=== PATIENT | female | born 1985 | race Caucasian/White ===

== ENCOUNTER → 2017-03-08 | Outpatient (CLI) | payer BC ==
[~2017-03-08] MED LIST: IBUP600T44 PO; PRENTAB26 PO
[2017-03-08 11:24] LABS: URINE APPEARANCE CLOUDY (CLEAR); URINE BILIRUBIN NEG (NEG); URINE COLOR DK YELLOW; URINE EPITHELIAL CELL AUTO >30 /lpf (0-5); URINE NITRITE NEG (NEG); URINE SPECIFIC GRAVITY 1.033 (1.000-1.030); UROBILINOGEN NEG (NEG)
[2017-03-08 11:25] LABS: MANUAL MICROSCOPIC REQUIRED? NO; REVIEW REQ? NO
== END | disposition home or self-care (01) ==
LOC: C.LABSPEC 11:00
PROVIDERS: ATTEND Obstetrics & Gynecology
DX: O34.219 Maternal care for unspecified type scar from previous cesarean delivery (principal)

== ENCOUNTER → 2017-03-15 | Outpatient (CLI) | payer BC | END | disposition home or self-care (01) | LOC: C.PAPS 08:42 | PROVIDERS: ATTEND Obstetrics & Gynecology | DX: Z34.81 Encounter for supervision of other normal pregnancy, first trimester (principal) ==

== ENCOUNTER → 2017-03-15 | Outpatient (CLI) | payer BC ==
[2017-03-15 17:37] LABS: BASO % 0.2 %; BASO ABS # 0.02 K/uL (0-0.2); COMPLETE YES; EOS % 0.6 %; HEMATOCRIT 38.2 % (37-47); IG% 0.3 %; LYMPH % 22.5 %; LYMPH ABS # 2.32 K/uL (1.2-3.4); MEAN CELL VOLUME 87.2 fL (80-100); MEAN CORPUSCULAR HEMOGLOBIN 29.9 pg (25-34); MEAN CORPUSCULAR HGB CONC 34.3 g/dl (32-36); MONO % 9.6 %; NEUT % 66.8 %; PLATELET COUNT 250 K/uL (130-400); RED BLOOD COUNT 4.38 M/uL (4.2-5.4); WHITE BLOOD COUNT 10.31 K/uL (4.8-10.8)
[2017-03-18 01:57] LABS: CHLAMYDIA TRACH RNA*** NOT DETECTED (NOT DETECTED); GC (NEIS GONORRHOEAE)RNA** NOT DETECTED (NOT DETECTED)
== END | disposition home or self-care (01) ==
LOC: C.LAB1850 16:14
PROVIDERS: ATTEND Obstetrics & Gynecology
DX: Z34.82 Encounter for supervision of other normal pregnancy, second trimester (principal)

== ENCOUNTER → 2017-05-10 | Outpatient (CLI) | payer BC ==
[2017-05-10 16:58] LABS: GTGD 50 Grams
[2017-05-12 14:48] LABS: AFP CONCENTRATION 35.5 NG/ML; AFP MULTIPLE OF MEDIAN 1.29; AFPTS INSULIN DEP DIABETIC? NO; AFPTS MATERNAL WT 193 LBS; ALPHA-FETOPROTEIN RACE CAUCASIAN=W; ESTRIOL MULTIPLE OF MEDIAN 0.99; HISTORY OF NTD NO; INHIBIN A 151 PG/ML; INHIBIN A MOM 0.99; REPEAT SAMPLE? NO; hCG MULTIPLE OF MEDIAN 2.17
== END | disposition home or self-care (01) ==
LOC: C.LAB1850 15:11
PROVIDERS: ATTEND Obstetrics & Gynecology
DX: Z34.82 Encounter for supervision of other normal pregnancy, second trimester (principal)

== ENCOUNTER → 2017-08-02 | Outpatient (CLI) | payer SELFPAY ==
[~2017-08-02] MED LIST changes: +OXYC-57 PO
== END | disposition home or self-care (01) ==
LOC: C.LABSPEC 13:12
PROVIDERS: ATTEND Obstetrics & Gynecology
DX: Z34.83 Encounter for supervision of other normal pregnancy, third trimester (principal)

== ENCOUNTER → 2017-08-02 | Outpatient (CLI) | payer OTHER ==
[2017-08-02 10:46] LABS: HEMATOCRIT 33.8 % (37-47); HEMOGLOBIN 11.4 g/dL (12.0-16.0)
== END | disposition home or self-care (01) ==
LOC: C.LAB1850 09:30
PROVIDERS: ATTEND Obstetrics & Gynecology
DX: Z34.83 Encounter for supervision of other normal pregnancy, third trimester (principal)

== ENCOUNTER 2017-09-30 12:03 | Inpatient (IN) | payer OTHER ==
[~2017-09-30] VITALS: Ht 160 cm; Wt 94.1 kg
[~2017-09-30 12:03] MED LIST changes: -OXYC-57 PO
[2017-09-30 12:30] VITALS: Ht 160 cm; Wt 94.1 kg
[2017-09-30] MEDS ORDERED: CITRIC ACID/SODIUM CITRATE 15 ML UDC PO ONE (12:30)
--- NOTE | 2017-09-30 12:39 | HISTORY & PHYSICAL EXAMINATION ---
DATE OF ADMISSION: 09/30/2017 PREOPERATIVE HISTORY AND PHYSICAL HISTORY OF PRESENT ILLNESS: Deidre presented on 09/30/2017 to labor and delivery with premature rupture of membranes. She said her membranes ruptured approximately 8:30 in the morning and then contractions started to increase. Her is noted that this is her fourth baby and this will be her fourth . She also wishes a tubal ligation. Says her was uncomplicated and the only real issue was that the 3 prior sections. The patient is due on 10/25/2017 making her 36 weeks and 3 days today. I do not have a group B strep status as this would likely to be done this week in the office. Her prior sections ____ 2 of them were done in [place] and then the last one was done at 39 weeks at [facility]. PAST MEDICAL HISTORY: Healthy. PAST SURGICAL HISTORY: As mentioned, three prior sections. SOCIAL HISTORY: She is , nonsmoker, nondrinker. FAMILY HISTORY: Noncontributory. REVIEW OF SYSTEMS: Negative. PHYSICAL EXAMINATION: VITAL SIGNS: Stable. She is afebrile. Weight is 210 pounds. CHEST: Clear. CARDIOVASCULAR: Normal rate and rhythm. No audible murmur. ABDOMEN: Gravid. heart rate tones reactive. Abdomen gravid. PELVIS: A sterile spec exam done. There is pooling of fluid which is in the vagina, cervix appears closed. Ferning is positive. IMPRESSION AND PLAN: Clear picture premature rupture of membranes. Discussed need for section today. The patient also wishes a tubal. Discussed risks including bleeding, infection, injury to bowel, bladder, ureter, vessels, deep vein thrombosis and pulmonary embolus. We discussed increased risks of internal organ injury with prior sections x4. We also discussed tubal failure rates and risks.
[2017-09-30] MEDS ORDERED: LACTATED RINGER'S 1000ML 1,000 ML IV SCH ×2 (12:40→15:15)
[2017-09-30] MEDS ORDERED: CEFAZOLIN 2000MG IV PUSH 15 ML IV SCH (12:45)
[2017-09-30 12:48] LABS: BASO % 0.1 %; BASO ABS # 0.01 K/uL (0-0.2); EOS % 0.2 %; EOS ABS # 0.02 K/uL (0-0.5); HEMATOCRIT 35.1 % (37-47); HEMOGLOBIN 12.1 g/dL (12.0-16.0); IG# 0.06 K/uL (0.00-0.02); LYMPH % 16.8 %; LYMPH ABS # 1.56 K/uL (1.2-3.4); MEAN CELL VOLUME 91.6 fL (80-100); MEAN CORPUSCULAR HEMOGLOBIN 31.6 pg (25-34); MEAN CORPUSCULAR HGB CONC 34.5 g/dl (32-36); MEAN PLATELET VOLUME 9.9 fL (7.4-10.4); MONO % 6.8 %; MONO ABS # 0.63 K/uL (0.11-0.59); NEUT % 75.5 %; NEUT ABS # 6.98 K/uL (1.4-6.5); PLATELET COUNT 202 K/uL (130-400); RED CELL DISTRIBUTION WIDTH CV 13.6 % (11.5-14.5); RED CELL DISTRIBUTION WIDTH SD 44.9 fL (36.4-46.3); WHITE BLOOD COUNT 9.26 K/uL (4.8-10.8)
[2017-09-30] MEDS ORDERED: MoRPHine SULFATE PF 1 MG/ML 10 ML AMP/VIAL ONE (13:29)
[2017-09-30] MEDS ORDERED: OXYTOCIN INJ 10 UNITS/ML VIAL ONE (14:10)
[2017-09-30] MEDS ORDERED: NALOXONE HCL INJ 1 MG in SODIUM CHLORIDE 0.9% 1000ML 1,000 ML IV PRN (14:16)
[2017-09-30] MEDS ORDERED: LACTATED RINGER'S 1000ML 500 ML IV PRN (14:16)
[2017-09-30] MEDS ORDERED: NALOXONE HCL INJ 0.08 MG in SYRINGE 1.8 ML IV PRN (14:16)
[2017-09-30] MEDS ORDERED: SODIUM CHLORIDE 0.9% 1000ML 1,000 ML IV PRN (14:16)
[2017-09-30] MEDS ORDERED: METOCLOPRAMIDE HCL INJ 20 MG in SODIUM CHLORIDE 0.9% 50ML 50 ML IV PRN (14:30)
[2017-09-30] MEDS ORDERED: NALBUPHINE HCL INJ 10 MG/ML AMP IV PRN (14:30)
[2017-09-30] MEDS ORDERED: ATROPINE SULFATE 0.1 MG/ML 5ML SYR IV PRN (14:30)
[2017-09-30] MEDS ORDERED: NO NARCOTICS OR SEDATIVES SCH (14:30)
[2017-09-30] MEDS ORDERED: KETOROLAC TROMETHAMINE 30 MG/ML VIAL IV. PRN (14:30)
[2017-09-30] MEDS ORDERED: LABETALOL HCL IV 5 MG/ML 20ML IV PRN (14:30)
[2017-09-30] MEDS ORDERED: NALOXONE HCL 0.4 MG/1 ML VIAL/CARP IV PRN (14:30)
[2017-09-30] MEDS ORDERED: MEPERIDINE HCL 25 MG/ML CARP IV PRN ×2 (14:30)
[2017-09-30] MEDS ORDERED: ONDANSETRON INJ 2 MG/ML 2 ML VIAL IV PRN ×2 (14:30)
[2017-09-30] MEDS ORDERED: DiphenhydrAMINE HCL 50 MG/ML VIAL IV PRN ×2 (14:30)
[2017-09-30] MEDS ORDERED: MoRPHine SULFATE PF 1 MG/ML 10 ML AMP/VIAL EPI PRN (14:30)
[2017-09-30] MEDS ORDERED: HYDROmorphone INJ 1 MG/ML SYR IV PRN (14:30)
[2017-09-30] MEDS ORDERED: FENTANYL CITRATE INJ 50 MCG/1 ML 2 ML VIAL IV PRN (14:30)
[2017-09-30] MEDS ORDERED: MoRPHine SULFATE 2 MG/ML CARP IV PRN (14:30)
[2017-09-30] MEDS ORDERED: EpHEDrine SULFATE INJ 50 MG/ML AMP IV PRN ×2 (14:30)
--- NOTE | 2017-09-30 14:39 | [facility] Post Operative Brief Note ---
Immediate Operative Summary Operative Date Sep 30, 2017. Pre-Operative Diagnosis Repeat Caesarean; Requests Permanent Sterlization Post-Operative Diagnosis Same Procedure(s) Performed Repeat Caesarean Section; Delivery of a live male child at 1405; Bilateral Tubal Ligation. Low transverse Surgeon Dr Arnold [employer] Teller Surgeon(s) Dr Mathews Estimated Blood Loss 600 cc Findings Consistent with Post-Op Diagnosis Specimens cord blood arterial and venous gases placenta-hold Drains Lilly Anesthesia Type L&D Only EPID Exist Complication(s) none Disposition Accompanied Pt To Recover: no Disposition: L&D
[2017-09-30] MEDS ORDERED: BENZOCAINE 20% AER SPR 82.5 GM CAN EXT PRN (14:45)
[2017-09-30] MEDS ORDERED: MAGNESIUM HYDROXIDE SUSP 30 ML UDC PO PRN (14:45)
[2017-09-30] MEDS ORDERED: LANOLIN OINT EXT PRN (14:45)
[2017-09-30] MEDS ORDERED: SUPERCREAM 0.870 % 15GM JAR EXT PRN (14:45)
[2017-09-30] MEDS ORDERED: SENNA 8.6 MG TAB PO PRN (14:45)
[2017-09-30] MEDS ORDERED: HYDROCORTISONE ACETATE 25 MG SUPP PR PRN (14:45)
[2017-09-30] MEDS ORDERED: OXYTOCIN INJ 20 UNITS in LACTATED RINGER'S 1000ML 1,000 ML IV SCH (15:15)
--- NOTE | 2017-09-30 15:31 | Anesthesiology Progress Note ---
Anesthesia Post Op Note Date & Time Sep 30, 2017 at 15:30 Notes Mental Status: alert / awake / arousable, participated in evaluation Pt Amnestic to Procedure: Yes Nausea / Vomiting: adequately controlled Pain: adequately controlled Airway Patency, RR, SpO2: stable & adequate BP & HR: stable & adequate Hydration State: stable & adequate Neuraxial Anesthesia: was administered, sensory block is resolving Anesthetic Complications: no major complications apparent
--- NOTE | 2017-09-30 16:33 | OPERATIVE REPORT ---
DATE OF OPERATION: 09/30/2017 PREOPERATIVE DIAGNOSES: premature rupture of membranes, repeat section. The patient requests permanent sterilization, 36 weeks 3 days. POSTOPERATIVE DIAGNOSES: Same. PROCEDURE: Low transverse section, bilateral tubal ligation. SURGEON: Dr. Arnold. SIGNALS INTELLIGENCE SUPERINTENDENT: Dr. Mathews. ESTIMATED BLOOD LOSS: 600 mL. FINDINGS: Consistent with postoperative diagnosis. SPECIMENS: Cord blood, placenta hold and bilateral pieces of fallopian tube. DRAINS: Lilly. ANESTHETIC: Spinal. COMPLICATIONS: None. DISPOSITION: L&D. DESCRIPTION OF PROCEDURE: Deidre was given a spinal anesthetic, prepped and draped in dorsal lithotomy position. Lilly catheter placed by Dr. Arnold. Skin area tested with pickups with teeth and found to be adequate. IV Ancef given preoperatively. Using the previous Pfannenstiel incision, we made a scalpel incision dissecting down through subcutaneous to the fascia in the midline. Fascia was dissected laterally with the curved Randolph scissors. There were dense adhesions at this stage. I was able to resect the fascia superiorly away from the rectus muscles and entered the peritoneal cavity in a superior location. There were significant adhesions of the anterior abdominal wall to the anterior part of the uterus. These were dissected away sharply until we could expose the low segment of the uterus. At this stage, we felt we were well away from the bladder and we made a scalpel incision over this and entered the uterine cavity with a hemostat, opening expanded by the terminal press operator's fingers to allow delivery of the baby's head and the baby was in vertex position, clear fluid. Baby's head flexed and the baby was delivered by flexion of the head and pressure on the abdomen. Live vigorous infant. No excessive force used. Cord clamped and cut. Cord gases obtained. Cord blood obtained. IV Pitocin started. Placenta removed. Uterus exteriorized. We ensured all placenta removed with a moist lap. Uterus was closed in 2 layer running locked 0 Monocryl and a second reinforcing nonlocked 0 Monocryl. At this stage, hemostasis was excellent. I did confirm with the patient and she still wished her tubes tied. This was done by first on the right tube, grabbing in the isthmic portion with the [place] ligating this with a 0 chromic and then a second 0 chromic tie and then a small portion of right fallopian tube was cut out and sent to pathology, same exact process repeated on the right. Once this was done after generous irrigation and suction of the cul-de-sac and bladder flap regions, uterus was placed back in the peritoneal cavity. On visualization, hemostasis was excellent including the tubal ligation site. Fascia closed with #1 PDS, 2 stitches starting laterally meeting in the midline. Each stitch tied 8 times. Subcutaneous fat irrigated and closed with 3-0 Vicryl, 4-0 subcuticular Monocryl closure. Urine was clear at the end of the procedure. Sponge and instrument counts correct. I attest to the content of the Intraoperative Record and any orders documented therein. Any exception s are noted below.
[2017-09-30] MEDS: SIMETHICONE 80 MG CHEW PO SCH ×2 (17:00→20:03)
[2017-09-30 17:30] VITALS: BP 106/68; PULSE 71; TEMP 36.5; O2SAT 100
[2017-09-30 18:30] VITALS: O2SAT 100
[2017-09-30 19:30] VITALS: O2SAT 98
[2017-09-30] MEDS: DOCUSATE SODIUM 100 MG CAP PO SCH (20:03)
[2017-09-30 20:30] VITALS: BP 94/60; PULSE 74; TEMP 36.7; O2SAT 97; O2SAT 99
[2017-09-30 22:30] VITALS: O2SAT 98
[2017-09-30 23:30] VITALS: O2SAT 97
[2017-10-01] VITALS (11 sets, daily range): BP systolic 94–118; BP diastolic 59–77; PULSE 72–78; TEMP 36.4–36.7; O2SAT 96–100
[2017-10-01] MEDS: IBUPROFEN 600 MG TAB PO PRN ×5 (02:36→20:39)
[2017-10-01] MEDS ORDERED: CEFAZOLIN IV 2,000 MG in DEXTROSE 5% 50ML 50 ML IV SCH (06:00)
[2017-10-01 07:01] LABS: BASO % 0.1 %; BASO ABS # 0.01 K/uL (0-0.2); EOS % 0.5 %; EOS ABS # 0.05 K/uL (0-0.5); HEMATOCRIT 31.3 % (37-47); HEMOGLOBIN 10.8 g/dL (12.0-16.0); IG# 0.04 K/uL (0.00-0.02); LYMPH % 13.7 %; LYMPH ABS # 1.27 K/uL (1.2-3.4); MEAN CORPUSCULAR HEMOGLOBIN 31.4 pg (25-34); MEAN CORPUSCULAR HGB CONC 34.5 g/dl (32-36); MEAN PLATELET VOLUME 9.7 fL (7.4-10.4); MONO % 10.6 %; MONO ABS # 0.98 K/uL (0.11-0.59); NEUT % 74.7 %; NEUT ABS # 6.93 K/uL (1.4-6.5); PLATELET COUNT 177 K/uL (130-400); RED CELL DISTRIBUTION WIDTH CV 13.6 % (11.5-14.5); RED CELL DISTRIBUTION WIDTH SD 45.2 fL (36.4-46.3); WHITE BLOOD COUNT 9.28 K/uL (4.8-10.8)
[2017-10-01] MEDS ORDERED: KETOROLAC TROMETHAMINE 30 MG/ML VIAL IV. PRN (07:45)
[2017-10-01] MEDS ORDERED: ONDANSETRON INJ 2 MG/ML 2 ML VIAL IV PRN (07:45)
[2017-10-01] MEDS ORDERED: PROMETHAZINE HCL INJ 25 MG in SODIUM CHLORIDE 0.9% 50ML 50 ML IV PRN (07:45)
[2017-10-01] MEDS ORDERED: DiphenhydrAMINE HCL 50 MG/ML VIAL IV PRN (07:45)
[2017-10-01] MEDS ORDERED: ZOLPIDEM TARTRATE 5 MG TAB PO PRN (07:45)
[2017-10-01] MEDS ORDERED: DC INTRASPINAL MORPHINE ONE (07:45)
[2017-10-01] MEDS ORDERED: OXYCODONE/ACETAMINOPHEN 5-325 TAB PO PRN ×2 (07:45)
[2017-10-01] MEDS ORDERED: MEPERIDINE HCL 50 MG/ML CARP IV PRN ×2 (07:45)
--- NOTE | 2017-10-01 08:07 | Progress Note ---
Subjective Oct 01, 2017. Subjective conversation w/ patient, physical exam, chart review Ambulation: ambulating normally Voiding: no voiding problems Passing Gas: No Diet Tolerance: Regular Diet Lochia: Small Objective Vital Signs Date Time Temp Pulse Resp B/P (MAP) Pulse Ox O2 Delivery O2 Flow Rate FiO2 10/01/17 06:30 18 97 10/01/17 05:30 18 100 10/01/17 04:30 18 100 10/01/17 03:45 36.7 74 18 94/60 (71) 97 Room Air 10/01/17 03:30 18 97 10/01/17 02:30 18 100 10/01/17 01:30 18 100 10/01/17 00:30 36.5 73 18 95/59 (71) 97 Room Air 10/01/17 00:30 18 97 10/01/17 00:30 97 Room Air 09/30/17 23:30 18 97 09/30/17 22:30 18 98 09/30/17 20:30 36.7 74 20 94/60 (71) 97 Room Air 09/30/17 20:30 20 97 09/30/17 20:30 18 99 09/30/17 19:30 18 98 09/30/17 18:30 18 100 09/30/17 17:30 18 100 09/30/17 17:30 100 Room Air 09/30/17 17:30 100 Room Air 09/30/17 17:30 36.5 71 18 106/68 (81) 100 Room Air Physical Exam General Appearance: WELL-APPEARING Respiratory/Chest: lungs clear Cardiovascular: regular rate, rhythm Abdomen: non tender Fundus: Firm Incision Description: Clean, Dry & Intact Extremities: no calf tenderness Laboratory Results Last 24 Hours Test 09/30/17 12:37 10/01/17 06:15 White Blood Count 9.26 K/uL 9.28 K/uL Red Blood Count 3.83 M/uL 3.44 M/uL Hemoglobin 12.1 g/dL 10.8 g/dL Hematocrit 35.1 % 31.3 % Mean Corpuscular Volume 91.6 fL 91.0 fL Mean Corpuscular Hemoglobin 31.6 pg 31.4 pg Mean Corpuscular Hemoglobin Concent 34.5 g/dl 34.5 g/dl Platelet Count 202 K/uL 177 K/uL Mean Platelet Volume 9.9 fL 9.7 fL Neutrophils (%) (Auto) 75.5 % 74.7 % Lymphocytes (%) (Auto) 16.8 % 13.7 % Monocytes (%) (Auto) 6.8 % 10.6 % Eosinophils (%) (Auto) 0.2 % 0.5 % Basophils (%) (Auto) 0.1 % 0.1 % Neutrophils # (Auto) 6.98 K/uL 6.93 K/uL Lymphocytes # (Auto) 1.56 K/uL 1.27 K/uL Monocytes # (Auto) 0.63 K/uL 0.98 K/uL Eosinophils # (Auto) 0.02 K/uL 0.05 K/uL Basophils # (Auto) 0.01 K/uL 0.01 K/uL RDW Standard Deviation 44.9 fL 45.2 fL RDW Coefficient of Variation 13.6 % 13.6 % Immature Granulocyte % (Auto) 0.6 % 0.4 % Immature Granulocyte # (Auto) 0.06 K/uL 0.04 K/uL Assessment and Plan Post-Op Day#: 1 Continue Routine Care: Postoperative day #1 from section continue ambulation
[2017-10-01] MEDS: SIMETHICONE 80 MG CHEW PO SCH ×4 (08:19→20:38)
[2017-10-01] MEDS: PRENATAL VITAMIN TAB PO SCH (08:19)
[2017-10-01] MEDS: DOCUSATE SODIUM 100 MG CAP PO SCH ×2 (08:20→20:38)
[2017-10-01] MEDS ORDERED: BISACODYL 5 MG TABEC PO ONE (22:00)
[2017-10-02] MEDS: IBUPROFEN 600 MG TAB PO PRN ×4 (00:03→16:07)
--- NOTE | 2017-10-02 06:34 | Progress Note ---
Subjective Oct 02, 2017. Subjective conversation w/ patient, physical exam, chart review Ambulation: ambulating normally Voiding: no voiding problems Passing Gas: Yes Diet Tolerance: Regular Diet Lochia: Small Objective Vital Signs Date Time Temp Pulse Resp B/P (MAP) Pulse Ox O2 Delivery O2 Flow Rate FiO2 10/01/17 23:50 96 Room Air 10/01/17 23:50 36.6 73 16 118/77 (91) 96 Room Air 10/01/17 15:30 36.4 78 20 112/68 (83) Room Air 10/01/17 15:30 Room Air 10/01/17 08:25 36.6 72 20 103/68 (80) Physical Exam General Appearance: WELL-APPEARING Respiratory/Chest: lungs clear Abdomen: non tender Fundus: Firm Incision Description: Clean, Dry & Intact Extremities: no calf tenderness Laboratory Results Last 24 Hours Test 10/02/17 06:01 Assessment and Plan Post-Op Day#: 2 Continue Routine Care: Postop day #2 from section and bilateral tubal ligation at this stage she meets discharge criteria and wishes to go home
[2017-10-02] MEDS ORDERED: OXYC-57 PO (06:35)
--- NOTE | 2017-10-02 06:35 | Discharge Instructions ---
Discharge Instructions Date of Service Oct 02, 2017. Admission Reason for Admission: Check Rupture Discharge Discharge Diagnosis / Problem: CS Discharge Goals Goal(s): Routine recovery after Activity Recommendations Activity Limitations: per Instructions/Follow-up section . Instructions / Follow-Up Instructions / Follow-Up ACTIVITY RECOMMENDATIONS: * Gradual return to full activity over the next 2-3 weeks. * No lifting - nothing heavier than baby over the next 2-3 weeks. * Do not engage in vigorous exercise, sexual activity or sports until cleared by your physician. * Do not drive or operate any motorized equipment until cleared by your physician. * You may shower/bathe daily. MEDICATIONS: For discomfort or pain, you may use Acetaminophen (Tylenol), Ibuprofen (Advil), or Naproxen (Aleve) following the package directions. For constipation you may use Colace following the package directions. BREAST CARE: If you are not breast feeding: * Wear a supportive bra 24 hours a day for one to two weeks. * Avoid stimulating your breasts and nipples as much as possible during the first few weeks after delivery. * When taking a shower, have the warm water hit your back, not breasts. * When your breasts feel full, apply ice packs. Usually three to four times a day helps ease the discomfort. * Take a mild pain medication (Tylenol / Motrin) when you are uncomfortable. If breast feeding: * Use breast milk to lubricate nipples. Lansinoh cream may be used for sore nipples. You do not need to remove cream prior to breast feeding. If using a different brand of cream, check the label for directions regarding removal of cream prior to nursing. * Wear a supportive bra. * If having problems with breasts or breast feeding, call a forestry consultant or your health care provider. SPECIAL CARE INSTRUCTIONS: When you are discharged from the hospital, it is important for you to follow the instructions listed below: * During the first week at home, you should be able to care for yourself and your baby. In addition, the usual light household activities are encouraged. * Limit your activities to the way you feel. Do not try to clean the house or move furniture. Be sensible. * If you actively engage in sports and have done so up until the time of your delivery, you may resume these activities as soon as you feel able. This may take up to one month or even longer. Use good judgment. * Continue to take your vitamins for at least six weeks after the of your baby. * Your diet need not be limited unless you were on a special diet before your delivery. Breast-feeding mothers need around 2500 calories per day and at least 64-80 ounces of fluid per day (8 to 10 glasses). * You should eat foods from the four major food groups. Crash diets or fad diets are to be avoided. Eating lean meats, fresh fruits and vegetables, low-fat dairy products, high fiber foods and a regular exercise program, will help you get back to your pre- weight without putting your health at risk. * Constipation is sometimes a problem after delivery. Take a mild laxative as needed. If breast feeding, Milk of Magnesia is acceptable to use. You may use a suppository or Fleets enema. * A daily shower or tub bath is suggested. Wash incision daily with warm soapy water and pat dry. It doesn't need to be covered unless drainage is present. * A bloody vaginal discharge will usually continue until around four weeks . A small amount of bleeding may continue for as long as six weeks. Vaginal discharge changes from the bright red bleeding after delivery to pink then brownish and finally yellowish-pink before becoming white and disappearing. * Bleeding may increase with activity. Your first period may come in 4-8 weeks. If you are breast feeding, your period may be delayed even longer. * [place] (sex) can begin whenever both you and your partner feel comfortable and do not have any form of genital infection. It is recommended that you wait at least six weeks for internal and external healing to occur. If you have questions, please talk to your health care practitioner. A condom should be used to prevent infection and . * Foreplay, gentle intercourse and lubrication is very important the first several times to prevent pain. A water-based lubricant such as K-Y jelly or Astroglide may be used. * If you have RH negative blood and your baby is RH positive, you will receive RHOGAM by injection prior to discharge. The nurse will give you a card to keep with you that has the date and place that you received RHOGAM after delivery. * During your care, you had a Rubella screen done to check for the presence of rubella antibodies in your blood. If your test was negative, you will receive a Rubella vaccine prior to discharge. This vaccine may cause a fever, soreness at the injection site and flu-like symptoms. If these symptoms persist, notify your health care practitioner. is not advised for one month after a Rubella vaccine. * Verbalizes understanding of car seat law as reviewed with patient nursing. * Car Seat hand-out given and reviewed with patient by nursing. * Shaken baby information reviewed with patient by nursing. Call you doctor if: * Heavy bleeding (saturating several pads an hour) or passing clots the size of your fist. * A fever >101 degrees F (38.3 degrees C) on two occasions four hours apart and /or chills. * Unusual pain in the pelvic or vaginal areas. * Call the doctor for any increased redness, drainage or swelling around the incision and any pain unrelieved by prescribed pain medication. * "Baby Blues" lasting longer than two weeks. If you have any questions or concerns, call your health care practitioner at . FOLLOW UP VISIT: * Please call the office at to schedule a 6 week examination. It is important you keep this appointment. It is important for you to make arrangements for either yearly or twice yearly check-ups thereafter. Current Hospital Diet Patient's current hospital diet: Regular OB Diet Discharge Diet Recommended Diet: Regular OB Diet Procedures Procedures Performed: Repeat Caesarean Section; Delivery of a live male child at 1405; Bilateral Tubal Ligation. Low transverse Pending Studies Studies pending at discharge: no Medical Emergencies . Who to Call and When: Medical Emergencies: If at any time you feel your situation is an emergency, please call [phone] immediately. . Non-Emergent Contact Non-Emergency issues call your: Private Tutor . . "Provider Documentation" section prepared by Ariel Arnold. .
[2017-10-02 07:02] LABS: HEMATOCRIT 31.2 % (37-47); HEMOGLOBIN 10.5 g/dL (12.0-16.0)
[2017-10-02 08:00] VITALS: BP 114/76; PULSE 73; TEMP 36.4
[2017-10-02] MEDS: DOCUSATE SODIUM 100 MG CAP PO SCH (08:01)
[2017-10-02] MEDS: SIMETHICONE 80 MG CHEW PO SCH ×3 (08:02→16:07)
[2017-10-02] MEDS: PRENATAL VITAMIN TAB PO SCH (08:02)
[2017-10-02 15:13] VITALS: BP 118/80; PULSE 79; TEMP 36.7
[2017-10-02] MEDS ORDERED: BISACODYL 10 MG SUPP PR PRN (22:45)
== END 2017-10-02 17:00 | disposition home or self-care (01) | DRG 766 ==
LOC: C.OPB 12:03 → C.LD 12:04 → C.OPB 12:23 → C.OBG 18:08
PROVIDERS: ADMIT Obstetrics & Gynecology; ATTEND Obstetrics & Gynecology
PROC: 0UB70ZZ Excision of Bilateral Fallopian Tubes, Open Approach (ICD-10-PCS; principal; 2017-09-30 12:48)
PROC: 10D00Z1 Extraction of Products of Conception, Low, Open Approach (ICD-10-PCS; principal; 2017-09-30 12:48)
DX: O42.913 Preterm premature rupture of membranes, unspecified as to length of time between rupture and onset of labor, third trimester (principal); O34.219 Maternal care for unspecified type scar from previous cesarean delivery; Z37.0 Single live birth; Z3A.36 36 weeks gestation of pregnancy